=== PATIENT | male | born 1955 | race Two or more races ===

== ENCOUNTER → 2017-01-26 | Outpatient (CLI) | payer BC ==
--- NOTE | 2017-01-26 10:27 | US ---
EXAMINATION TYPE: US RT GROIN DATE OF EXAM: 01/26/2017 COMPARISON: NONE CLINICAL HISTORY: K40.30 Unilateral Inguinal Hernia With Obstruction. Previous bilateral hernia repai r 15 years ago, mesh, now has painful small bulge within right groin Scan of right groin does show a probable small hernia seen medially to iliac vessels, increase is s ize noted with valsalva maneuver normal appearing lymph node seen also IMPRESSION: Small right inguinal hernia noted.
== END | disposition home or self-care (01) ==
LOC: RADUSWWP 09:44
PROVIDERS: ATTEND Family Medicine
DX: K40.30 Unilateral inguinal hernia, with obstruction, without gangrene, not specified as recurrent (principal)

== ENCOUNTER → 2017-07-21 | Outpatient (CLI) | payer BC ==
--- NOTE | 2017-07-23 08:50 | MR ---
MR pelvis with and without contrast HISTORY: Right groin pain, inguinal hernia, bilateral hernia repair Multiplanar multisequence and postcontrast images obtained through the pelvis following 9 cc Gadavist IV No evident inguinal hernia. At the posterior right leg from this multilocular cystic collection at th e right hip possibly representing para labral cysts, subchondral geode formation suspected. To lesser extent within the hip. There is no evident adenopathy. Small focus of enhancement along the inguinal canal on the right compatible with lymph node. At the level of the origin of the hamstring musculature tendinosis changes are present. IMPRESSION: Osteoarthritis within the hips, additional findings above. No evident inguinal hernia.
== END | disposition home or self-care (01) ==
LOC: RADMRIMAIN 17:08
PROVIDERS: ATTEND Surgery
DX: M16.0 Bilateral primary osteoarthritis of hip (principal); M76.899 Other specified enthesopathies of unspecified lower limb, excluding foot
CPT/HCPCS: 82565; 72197; 36415; A9581